=== PATIENT | male | born 1985 | race African-American/Black ===

== ENCOUNTER 2022-04-26 06:58 | Inpatient (IN) | payer OTHER ==
[2022-04-26] MEDS ORDERED: Ipratropium Bromide 2.5 ml Neb ONE (07:10)
[2022-04-26 07:38] LABS: Actual Bicarbonate (HCO3a) 22.3 mEq/L (22-28); Analyzer IN Cardio ER; Base Excess (BEa) -1.4 mEq/L (-2.0 to +3.0); CO2 Tension 34.9 mmHg (35.0-45.0); Calcium, Ionized (arterial) 1.13 mmol/L (1.12-1.30); Carboxyhemoglobin (COHb) 0.5 gm% (0.0-3.0); Hemoglobin (Hb) 15.8 g/dL (14.0-18.0); O2 Tension (PaO2), arterial 88.1 mmHg (80.0-100.0); Potassium - ABG Lab 3.42 mmol/L (3.70-5.30); pH, Arterial 7.42 (7.35-7.45)
[2022-04-26 07:46] LABS: Puncture Site LRA
[2022-04-26 07:47] LABS: ALV-art Gradient 117.825 mmHg (0-20)
[2022-04-26 08:25] LABS: #Eosinphils 0.1 thou/uL (0.0-0.7); #Lymphocytes 1.4 thou/uL (1.20-3.40); #Monocytes 0.2 thou/uL (0.11-0.59); %Basophils 0.2 % (0.0-1.0); %Eosinophils 0.9 % (0.0-10.0); %Lymphocytes 13.1 % (21.0-51.0); %Monocytes 1.4 % (0.0-10.0); %Neutrophils 84.3 % (42.0-75.0); Hemoglobin 15.5 g/dL (14.0-18.0); Mean Corpuscular HGB CONC 31.9 g/dL (32.0-36.0); Mean Corpuscular Hemoglobin 30.5 pg (27.0-31.0); Mean Corpuscular Volume 95.6 fl (78.0-98.0); Mean Platelet Volume 7.4 fL (7.4-10.4); Platelet Count 300 10x3/uL (130-400); RBC Distribution Width 13.2 % (11.5-14.5); White Blood Cell (WBC) Count 10.6 10x3/uL (4.8-10.8)
[2022-04-26 08:39] LABS: ALT (SGPT) 21 U/L (8-55); AST (SGOT) 34 U/L (5-34); Albumin 4.2 g/dL (3.5-5.0); Alkaline Phosphatase 55 U/L (40-110); Anion Gap 14 mmol/L (10-20); BUN (Urea Nitrogen) 9 mg/dL (8.9-20.6); Bilirubin, Total 0.8 mg/dL (0.2-1.2); Calc. Creatinine Clearance 0 mL/min (70-130); Carbon Dioxide 23 mmol/L (22-29); Chloride 109 mmol/L (98-107); Estimated GFR 101; Globulin 2.7 g/dL (2.4-3.5); Glucose 86 mg/dL (70-105); Lipase 16 U/L (8-78); Potassium 3.5 mmol/L (3.5-5.1); Protein, Total 6.9 g/dL (6.0-8.3); Sodium 142 mmol/L (136-145)
[2022-04-26 08:53] LABS: PTT 28.7 sec (22.9-36.1); Prothrombin Time 13.7 sec (12.0-14.7)
[2022-04-26] MEDS ORDERED: Diazepam 10 MG/2 ML SYRINGE ONE (08:58)
[2022-04-26] MEDS ORDERED: HYDROcodone/Acetaminophen 5/325 mg Tablet PO PRN (09:16)
[2022-04-26] MEDS ORDERED: Senokot S 8.6-50 MG TAB PO PRN (09:16)
[2022-04-26] MEDS ORDERED: Guaifenesin DM 100-10/5 ML UDCUP PO PRN (09:16)
[2022-04-26 10:11] LABS: SARS-CoV-2 NAA Rapid Test Not Detected (NotDetected)
[2022-04-26] MEDS ORDERED: Iopamidol 370 76% 100 ML VIAL ONE (11:30)
[2022-04-26] MEDS ORDERED: methylPREDNISolone Sod Succ 40 MG VIAL IVP SCH (12:00)
[2022-04-26] MEDS ORDERED: methylPREDNISolone Sod Succ 40 MG VIAL ONE (14:19)
[2022-04-26] MEDS: methylPREDNISolone Sod Succ 40 MG VIAL IVP SCH ×2 (14:24→21:34)
[2022-04-26] MEDS ORDERED: Ipratropium/Albuterol 3 ML NEB ONE (14:25)
[2022-04-26] MEDS: Ipratropium/Albuterol 3 ML NEB NEB SCH ×2 (14:27→19:27)
[2022-04-26 16:00] VITALS: BMI 28.3
[2022-04-26] MEDS: Lorazepam 1 MG TAB PO PRN ×2 (17:31→21:32)
[2022-04-26] MEDS: Lithium Carbonate 150 MG CAP PO SCH (20:23)
[2022-04-26] MEDS: Famotidine 20 MG TAB PO SCH (20:23)
[2022-04-26] MEDS ORDERED: QUEtiapine 100 MG TAB PO SCH (21:00)
[2022-04-26] MEDS: Fluticasone Propionate Nasal Spray 16 gm Bottle NASAL SCH (21:32)
[2022-04-27] MEDS: Ipratropium/Albuterol 3 ML NEB NEB SCH ×2 (00:04→06:36)
[2022-04-27 05:35] LABS: #Lymphocytes 2.5 thou/uL (1.20-3.40); #Monocytes 0.3 thou/uL (0.11-0.59); #Neutrophils 9.8 thou/uL (1.40-6.50); %Basophils 0.1 % (0.0-1.0); %Eosinophils 0.1 % (0.0-10.0); %Lymphocytes 19.9 % (21.0-51.0); %Monocytes 2.4 % (0.0-10.0); %Neutrophils 77.4 % (42.0-75.0); Hemoglobin 14.3 g/dL (14.0-18.0); Mean Corpuscular HGB CONC 31.7 g/dL (32.0-36.0); Mean Corpuscular Hemoglobin 30.3 pg (27.0-31.0); Mean Corpuscular Volume 95.5 fl (78.0-98.0); Mean Platelet Volume 7.3 fL (7.4-10.4); Platelet Count 291 10x3/uL (130-400); RBC Distribution Width 13.4 % (11.5-14.5); Red Blood Cell (RBC) Count 4.73 mill/uL (4.70-6.10); White Blood Cell (WBC) Count 12.6 10x3/uL (4.8-10.8)
[2022-04-27 05:56] LABS: Anion Gap 13 mmol/L (10-20); BUN (Urea Nitrogen) 10 mg/dL (8.9-20.6); Calc. Creatinine Clearance 132 mL/min (70-130); Carbon Dioxide 20 mmol/L (22-29); Chloride 110 mmol/L (98-107); Estimated GFR 106; Glucose 131 mg/dL (70-105); Potassium 4.3 mmol/L (3.5-5.1); Sodium 139 mmol/L (136-145)
[2022-04-27] MEDS: methylPREDNISolone Sod Succ 40 MG VIAL IVP SCH (06:36)
[2022-04-27 07:40] VITALS: TEMP 97.8
[2022-04-27] MEDS ORDERED: Bupropion 150 MG XL TAB PO SCH (09:00)
[2022-04-27] MEDS ORDERED: [UNRECOGNIZED DRUG - OTHER] PO SCH (09:00)
[2022-04-27] MEDS ORDERED: FLUTICASONE PO SCH (09:00)
[2022-04-27] MEDS ORDERED: Fluticasone Propionate Nasal Spray 16 gm Bottle NASAL SCH (09:00)
[2022-04-27] MEDS ORDERED: SALMETEROL PO SCH (09:00)
[2022-04-27] MEDS ORDERED: Loratadine 10 MG TAB PO SCH ×2 (09:00)
[2022-04-27] MEDS: Lithium Carbonate 150 MG CAP PO SCH (09:16)
[2022-04-27] MEDS: Famotidine 20 MG TAB PO SCH (09:16)
[2022-04-27] MEDS: Fluticasone Propionate Nasal Spray 16 gm Bottle NASAL SCH (09:21)
[2022-04-27] MEDS ORDERED: Ipratropium/Albuterol 3 ML NEB NEB SCH (10:30)
[2022-04-27] MEDS ORDERED: Ipratropium Bromide 2.5 ml Neb NEB SCH (13:00)
[2022-04-27] MEDS ORDERED: Mometasone 200 MCG/Formoterol 5 MCG 120 PUFF INHALER INH SCH (18:30)
[2022-04-27] MEDS ORDERED: Montelukast Sodium 10 mg Tablet PO SCH (21:00)
== END 2022-04-27 12:50 | disposition home or self-care (01) | DRG 189 ==
LOC: ERS 06:58 → CCU 09:19 → IMCU/EMU 15:17
PROVIDERS: ADMIT Hospitalist; ATTEND Internal Medicine
PROC: 5A09357 Assistance with Respiratory Ventilation, Less than 24 Consecutive Hours, Continuous Positive Airway Pressure (ICD-10-PCS; principal; 2022-04-26)
DX: J96.00 Acute respiratory failure, unspecified whether with hypoxia or hypercapnia (principal); J45.51 Severe persistent asthma with (acute) exacerbation; F41.9 Anxiety disorder, unspecified; F31.9 Bipolar disorder, unspecified; F43.10 Post-traumatic stress disorder, unspecified; F20.9 Schizophrenia, unspecified; J31.0 Chronic rhinitis; Z20.822 Contact with and (suspected) exposure to COVID-19; Z91.199 Patient's noncompliance with other medical treatment and regimen due to unspecified reason; Z88.8 Allergy status to other drugs, medicaments and biological substances
CPT/HCPCS: 36415; 36600; 71275; 80048; 82805; 83605; 83690; 84443; 84484; 85025; 85610; 85730; 93005; 94644; 94660; 94760; 96361; 96374; 99292; J1650; J2920; J3360; J7611; J7620; Q9967; U0002